=== PATIENT | male | born 1985 | race Caucasian/White ===

== ENCOUNTER 2021-01-05 02:15 | Emergency (ER) | payer OTHER, SELFPAY ==
[~2021-01-05] VITALS: Ht 182.9 cm; Wt 72.6 kg
--- NOTE | 2021-01-05 02:15 | NUR ---
Patient to ER bed 8 to gown for evaluation. Side rails up. Report given to self. In Custody w/ [facility] [employer]. Introduced self to patient, positioned for comfort. Bed to low position sr up. Patient states was exposed to a co-worker >2 weeks ago but is experiencing no symptoms.
--- NOTE | 2021-01-05 03:39 | NUR ---
Patient given written and verbal discharge instructions and verbalizes understanding. ER MD discussed with patient the results and treatment provided. Patient in stable condition. ID arm band removed. Patient educated on pain management and to follow up with PMD. Pain Scale 0. Opportunity for questions provided and answered. Medication side effect fact sheet provided. refused b/p
== END 2021-01-05 03:58 ==
LOC: SED 02:15
DX: Z20.822 Contact with and (suspected) exposure to COVID-19 (principal)
CPT/HCPCS: 36415; 99283